=== PATIENT | female | born 2000 | race Caucasian/White ===

== ENCOUNTER 2024-05-08 11:59 | Emergency (ER) | payer BC ==
[~2024-05-08] VITALS: Ht 170.2 cm; Wt 113.4 kg
[2024-05-08] MEDS ORDERED: KETOROLAC TROMETHAMINE 15 MG/ML VIAL ONE (12:15)
[2024-05-08] MEDS: KETOROLAC TROMETHAMINE 15 MG/ML VIAL IV ONE (12:23)
[2024-05-08 12:58] LABS: ALBUMIN 3.4 g/dL (3.4-5.0); BASOPHILS # (AUTO) 0.1 K/uL (0.0-0.2); BASOPHILS % (AUTO) 1.1 % (0.0-2.0); BILIRUBIN,DIRECT 0.1 mg/dL (0.0-0.2); BILIRUBIN,TOTAL 0.4 mg/dL (0.2-1.0); CALCIUM, SERUM 8.8 mg/dL (8.5-10.1); CREATININE 0.6 mg/dL (0.6-1.3); EOSINOPHILS # (AUTO) 0.2 K/uL (0.0-0.7); EOSINOPHILS % (AUTO) 1.4 % (0.0-6.0); HEMATOCRIT 38 % (33-45); HEMOGLOBIN 12.4 g/dL (11.5-14.8); LYMPHOCYTES # (AUTO) 2.3 K/uL (0.8-4.8); LYMPHOCYTES % (AUTO) 19.1 % (20.0-44.0); MEAN CORPUSCULAR HEMOGLOBIN 27 PG (26.0-33.0); MEAN CORPUSCULAR HGB CONC 33 g/dl (31.0-36.0); MEAN CORPUSCULAR VOLUME 83 fL (82-100); MONOCYTES # (AUTO) 0.6 K/uL (0.1-1.30); MONOCYTES % (AUTO) 5.1 % (2.0-12.0); NEUTROPHILS # (AUTO) 8.8 K/uL (1.8-8.9); NEUTROPHILS % (AUTO) 73.3 % (43.0-81.0); PLATELET COUNT (AUTO) 359 K/uL (150-450); POTASSIUM 4.3 mmol/L (3.5-5.1); RED BLOOD CELL COUNT(AUTO) 4.56 MIL/uL (4.0-5.2); RED CELL DISTRIBUTION WIDTH 17.8 % (11.5-15.0); TOTAL PROTEIN, SERUM 7.1 g/dL (6.4-8.2); WHITE BLOOD COUNT (AUTO) 12.1 K/uL (4.3-11.0)
[2024-05-08] MEDS ORDERED: AMOX-427 PO (13:14)
[2024-05-08 13:16] LABS: PREGNANCY TEST URINE QUAL NEGATIVE (NEGATIVE)
[2024-05-08 13:17] LABS: APPEARANCE,URINE SLIGHTLY CLOUDY (CLEAR); BILIRUBIN,URINE NEGATIVE (NEGATIVE); BLOOD, URINE NEGATIVE Ery/uL (NEGATIVE); COLOR,URINE YELLOW (YELLOW); KETONES,URINE NEGATIVE (NEGATIVE); LEUKOCYTE ESTERASE ,URINE NEGATIVE (NEGATIVE); NITRITE, URINE NEGATIVE (NEGATIVE); PROTEIN,URINE NEGATIVE (NEGATIVE); UGLUCOSE NEGATIVE (NEGATIVE); UROBILINOGEN,URINE 0.2 EU/dL (0.2)
[2024-05-08 13:37] VITALS: BP 110/84; TEMP 98.2; O2SAT 99
== END 2024-05-08 13:34 ==
LOC: ER 12:04
DX: K81.9 Cholecystitis, unspecified (principal); R10.11 Right upper quadrant pain; R11.0 Nausea; F20.9 Schizophrenia, unspecified; F41.9 Anxiety disorder, unspecified; F31.9 Bipolar disorder, unspecified; F19.10 Other psychoactive substance abuse, uncomplicated; F17.200 Nicotine dependence, unspecified, uncomplicated; Z88.8 Allergy status to other drugs, medicaments and biological substances
CPT/HCPCS: 99285; 96374; 76705; 85025; 80048; 83690; 80076; 84703; 81003; 36415; J1885